=== PATIENT | female | born 1975 | race Caucasian/White ===

== ENCOUNTER 2016-08-10 08:10 | Inpatient (IN) ==
--- NOTE | 2016-08-07 20:27 | Discharge Summary ---
<Tessy Cadena - Last Filed: 08/10/16 08:03> Date of Encounter: 08/10/16 - Discharge Diagnosis (1) Arthritis of knee, right Priority: Primary Status: Acute (2) HTN (hypertension) Priority: Secondary Status: Chronic Qualifiers: Hypertension type: essential hypertension Qualified Code(s): I10 - Essential (primary) hypertension (3) Hypothyroid Priority: Secondary Status: Chronic Qualifiers: Hypothyroidism type: unspecified Qualified Code(s): E03.9 - Hypothyroidism , unspecified (4) DMII (diabetes mellitus, type 2) Priority: Secondary Status: Chronic Qualifiers: Diabetes mellitus complication status: with unspecified complications Diabetes mellitus detention insulin use: unspecified detention insulin use status Qualified Code(s): E11.8 - Type 2 diabetes mellitus with unspecified complications (5) Chronic pain Priority: Secondary Status: Chronic Comments: Will continue morphine 30mg BID - #60 LD 07/06. Qualifiers: Chronic pain type: other chronic pain Qualified Code(s): G89.29 - Other chronic pain - Discharge Medications Home Medications: Aspirin Enteric Coated [Aspirin EC] 325 mg PO DAILY #21 tablet.dr 08/07/16 [Rx] ALPRAZolam [Xanax 0.5 MG Tablet] 0.5 mg PO TID PRN 08/10/16 [History] ARIPiprazole [Abilify] 5 mg PO HS 08/10/16 [History] Atorvastatin Calcium [Lipitor] 20 mg PO HS 08/10/16 [History] Cetirizine HCl [Zyrtec] 10 mg PO DAILY 08/10/16 [History] Cholecalciferol (Vitamin D3) [Vitamin D3] 1,000 unit PO DAILY 08/10/16 [History] Ergocalciferol (VITAMIN D2) [Vitamin D2] 50,000 unit PO QWEEK 08/10/16 [History] FLUoxetine HCl [Prozac] 40 mg PO DAILY 08/10/16 [History] Fenofibrate [Tricor] 54 mg PO DAILY 08/10/16 [History] Gabapentin [Neurontin] 800 mg PO TID 08/10/16 [History] Insulin Glargine [Lantus] 30 unit SQ HS 08/10/16 [History] Levothyroxine [Synthroid] 125 mcg PO 0630 08/10/16 [History] Lidocaine Patch [Lidoderm 5% patch] 1 each TP DAILY #30 adh..patch 08/10/16 [Rx] Linagliptin [Tradjenta] 5 mg PO DAILY 08/10/16 [History] Lisinopril [Zestril] 10 mg PO DAILY 08/10/16 [History] Meloxicam 15 mg PO DAILY #30 tablet 08/10/16 [Rx] Metformin HCl [Glucophage] 1,000 mg PO BID 08/10/16 [History] Mirtazapine [Remeron] 15 mg PO HS 08/10/16 [History] Morphine Sulfate ER (24 HR) [Morphine Sulfate ER Caps] 1 cap PO BID 08/10/16 [ History] [place]-3/Dha/Epa/Fish Oil [Fish Oil 1,000 mg Softgel] 1 each PO DAILY 08/10/16 [ History] Omeprazole [PriLOSEC] 20 mg PO DAILY 08/10/16 [History] Tizanidine HCl 4 mg PO Q8H PRN 08/10/16 [History] Zolpidem [Ambien] 10 mg PO HS 08/10/16 [History] raNITIdine HCl [Ranitidine HCl] 150 mg PO DAILY 08/10/16 [History] Allergies/Adverse Reactions: Allergies meperidine [From Demerol] Allergy (Verified 08/10/16 09:02) Hives trazodone Allergy (Verified 08/10/16 09:02) Hives Primary care physician: Meliton Nicolas - Patient Status Disposition: Home, Self-Care Condition: Good - Discharge Instructions Follow Up With: Armin Banerjee, MANDY [Primary Care Provider] - - Hospital Course Hospital course: Ms. Dc is a 41 year old female - Time Spent with Patient Total time spent providing and/or coordinating discharge services: <Christian Brenner - Last Filed: 08/11/16 08:13> Date of Encounter: 08/11/16 Time of Encounter: 08:13 - Discharge Diagnosis (1) Arthritis of knee, right Priority: Primary Status: Acute (2) HTN (hypertension) Priority: Secondary Status: Chronic Qualifiers: Hypertension type: essential hypertension Qualified Code(s): I10 - Essential (primary) hypertension (3) Hypothyroid Priority: Secondary Status: Chronic Qualifiers: Hypothyroidism type: unspecified Qualified Code(s): E03.9 - Hypothyroidism , unspecified (4) DMII (diabetes mellitus, type 2) Priority: Secondary Status: Chronic Qualifiers: Diabetes mellitus complication status: with unspecified complications Diabetes mellitus detention insulin use: unspecified detention insulin use status Qualified Code(s): E11.8 - Type 2 diabetes mellitus with unspecified complications (5) Chronic pain Priority: Secondary Status: Chronic Qualifiers: Chronic pain type: other chronic pain Qualified Code(s): G89.29 - Other chronic pain Primary care physician: Meliton Nicolas - Patient Status Functional capacity at discharge: uses cane/walker Overall status at discharge: patient is progressing back to baseline - Hospital Course Hospital course: Ms. Dc is a 41 year old female The patient had an uneventful postoperative course. They received antibiotics and physical therapy and were discharged in stable condition. There will follow -up in the office in 2 weeks. Aspirin DVT prophylaxis - Time Spent with Patient Total time spent providing and/or coordinating discharge services:
--- NOTE | 2016-08-10 08:51 | History & Physical Report ---
Date of Encounter: 08/10/16 Time of Encounter: 08:50 24 Hour HP Update - Instructions Instructions: If the History and Physical is less than 30 days old and was completed prior to A.M. admission and or procedure and has NOT been updated on calendar day of procedure please complete this update prior to performing procedure. - Update Patient reports changes in Medical Condition: No Changes in examination, assessment, or condition: No Changes in Medication: No Preop tests/diagnostics Reviewed: Yes Surgery Remains Indicated: Yes Consent for Planned Operative Procedure(s) Verified: Yes - Pre-Operative Checklist Preoperative Checklist Indicated: No Prophylactic Antibiotic Ordered: Yes Is VTE Prophylaxis Indicated?: Yes
[2016-08-10] MEDS ORDERED: CeFAZolin Pre 2,000 MG/100 ML 2,000 MG/100 ML BAG IVPB ONE (09:25)
[2016-08-10] MEDS ORDERED: Lidocaine -MPF 1% 2 ML VIAL ID ONE (09:25)
[2016-08-10] MEDS ORDERED: Ringers Solution, Lactated 1,000 ML IVC SCH (09:30)
[2016-08-10] MEDS ORDERED: Scopolamine Patch 1.5 MG PATCH.TD72 TD ONE (09:48)
--- NOTE | 2016-08-10 09:51 | Anesthesia Evaluation PreOp ---
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: Other (anxiety, depression) Other Medical History: Diabetes Type II (uses insulin), Other (hx colon cancer s /p resection (no hx chemo/radiation), BMI 42) Anesthesia History: Past Anesthesia (cholecystectomy, tubal, C-S, hysterectomy, appendectomy, hemorrhoidectomy, colon resection, partial R knee surgery, bilateral carpal tunnel), Problems (nausea) Medications and Allergies Aspirin Enteric Coated [Aspirin EC] 325 mg PO DAILY #21 tablet.dr 08/07/16 [Rx] ALPRAZolam [Xanax 0.5 MG Tablet] 0.5 mg PO TID PRN 08/10/16 [History] ARIPiprazole [Abilify] 5 mg PO HS 08/10/16 [History] Atorvastatin Calcium [Lipitor] 20 mg PO HS 08/10/16 [History] Cetirizine HCl [Zyrtec] 10 mg PO DAILY 08/10/16 [History] Cholecalciferol (Vitamin D3) [Vitamin D] 1,000 unit PO DAILY 08/10/16 [History] Ergocalciferol (VITAMIN D2) [Vitamin D2] 50,000 unit PO QWEEK 08/10/16 [History] FLUoxetine HCl [Prozac] 40 mg PO DAILY 08/10/16 [History] Fenofibrate [Tricor] 54 mg PO DAILY 08/10/16 [History] Gabapentin [Neurontin] 800 mg PO TID 08/10/16 [History] Insulin Glargine [Lantus] 30 unit SQ HS 08/10/16 [History] Levothyroxine [Synthroid] 125 mcg PO 0630 08/10/16 [History] Lidocaine Patch [Lidoderm 5% patch] 1 each TP DAILY #30 adh..patch 08/10/16 [Rx] Linagliptin [Tradjenta] 5 mg PO DAILY 08/10/16 [History] Lisinopril [Zestril] 10 mg PO DAILY 08/10/16 [History] Meloxicam 15 mg PO DAILY #30 tablet 08/10/16 [Rx] Metformin HCl [Glucophage] 1,000 mg PO BID 08/10/16 [History] Mirtazapine [Remeron] 15 mg PO HS 08/10/16 [History] Morphine Sulfate ER (24 HR) [Morphine Sulfate ER Caps] 1 cap PO BID 08/10/16 [ History] [place]-3/Dha/Epa/Fish Oil [Fish Oil 1,000 mg Softgel] 1 each PO DAILY 08/10/16 [ History] Omeprazole [PriLOSEC] 20 mg PO DAILY 08/10/16 [History] Tizanidine HCl 4 mg PO Q8H PRN 08/10/16 [History] Zolpidem [Ambien] 10 mg PO HS 08/10/16 [History] raNITIdine HCl [Ranitidine HCl] 150 mg PO DAILY 08/10/16 [History] Allergies meperidine [From Demerol] Allergy (Verified 08/10/16 09:02) Hives trazodone Allergy (Verified 08/10/16 09:02) Hives - Meds/Allergy Pre-op Review Medications Reviewed: Yes Allergies Reviewed: Yes Beta Blockers on Current Med List: No Anesthesia Results - Labs Laboratory Tests 08/03/16 08/03/16 08/03/16 13:30 13:30 13:30 WBC Hgb Hct Plt Count PT 10.5 INR 1.0 APTT 30.5 Sodium 137 Potassium 3.9 Chloride 104 Carbon Dioxide 20 BUN 8 Creatinine 0.91 Est GFR ( Amer) > 60 Est GFR (Non-Af Amer) > 60 BUN/Creatinine Ratio 9 Est Mean Plasma Glucose 177 Hemoglobin A1c 7.8 H 08/03/16 13:30 WBC 11.9 H Hgb 13.2 Hct 39.4 Plt Count 301 PT INR APTT Sodium Potassium Chloride Carbon Dioxide BUN Creatinine Est GFR ( Amer) Est GFR (Non-Af Amer) BUN/Creatinine Ratio Est Mean Plasma Glucose Hemoglobin A1c - Imaging Chest x-ray: report reviewed Anesthesia Exam Last Vital Signs Temp 97.9 F 08/10/16 08:52 Pulse 79 08/10/16 08:52 Resp 18 08/10/16 08:52 BP 98/67 08/10/16 08:52 Pulse Ox 97 08/10/16 08:52 Weight: 110 kg NPO (# of Hours): >> 8 hrs - HEENT Pupil (Motor): Pupils equal, EOMI Mallampati: II Teeth: Normal Oral Opening: Greater than 3 - PIE MAKER MACHINE LOC: Oriented PIE MAKER MACHINE Motor: Normal RUE, Normal LUE, Normal RLE, Normal LLE, Normal Face - Cardiac Rhythm: Regular Murmur: None - Pulmonary Breath Sounds: bilateral Clear Respiratory Effort: Symmetrical Anesthesia Assess/Plan ASA Score: 3 Modified Jordan Scale for Level of Consciousness: Cooperative, oriented, and tranquil Anesthetic Plan: General, Regional Monitoring Plan: Standard Monitors Recovery Plan: PACU
[2016-08-10] MEDS ORDERED: *HR* Propofol 200 MG/20 ML VIAL IVP ONE (10:24)
[2016-08-10] MEDS ORDERED: *HR* Midazolam HCl 2 MG/2 ML VIAL ONE (10:24)
[2016-08-10] MEDS ORDERED: Ondansetron 4 MG/2 ML VIAL ONE (10:24)
[2016-08-10] MEDS ORDERED: *HR* FentaNYL (PF) 100 MCG/2 ML VIAL ONE (10:24)
[2016-08-10] MEDS ORDERED: Lidocaine -MPF 2% 2 ML VIAL ONE (10:24)
[2016-08-10] MEDS ORDERED: Dexamethasone 4 MG/ML VIAL ONE ×2 (10:24)
[2016-08-10] MEDS ORDERED: ROPIVACAINE HCL/PF 0.5% 30 ML VIAL ONE (11:10)
[2016-08-10] MEDS ORDERED: Bupivacaine/Clonidine Syringe 1 EACH SYRINGE ONE (11:11)
[2016-08-10] MEDS ORDERED: *HR* Succinylcholine 200 MG/10 ML VIAL IVP ONE (11:30)
[2016-08-10] MEDS ORDERED: *HR* HYDROmorphone 2 MG/ML SYRINGE ONE (12:00)
[2016-08-10] MEDS ORDERED: Ketorolac 30 MG/ML VIAL ONE (12:00)
--- NOTE | 2016-08-10 12:18 | Orthopedic Operative Note ---
Date of procedure: 08/10/16 Pre-op diagnosis: Right knee arthritis Post-op diagnosis: same (Previous partial femoral replacement medial femoral condyle.) Procedure: Procedure: Right Total knee replacement Estimated blood loss: 200 cc Hardware: Metal and polyethylene replacement. Arthrex Femur: 5 Tibia: 4 PS insert: 8 Patella: 34 Exam Under anesthesia: Full flexion and extension no instability well-healed incision no swelling or erythema Procedural Notes: Grade 3 arthritic changes around the femoral implant, grade 3 arthritic changes patellofemoral joint. Operative procedure: The patient was brought to the operating room and placed on the operating room table. After general anesthesia was administered the operative knee was examined. Findings were noted in the exam under anesthesia. The operative extremity was prepped and draped in sterile surgical fashion. The patient received IV antibiotics prior to skin incision. A standard midline incision was made centered over the patella. The incision was made through the skin and subcutaneous tissue. A medial parapatellar tendon approach was performed. Care was taken to preserve tissue along the medial aspect of the patella. And to protect the patella tendon. The deep MCL was released off the medial tibia. The infra patella fat pad was excised. Knee was brought into flexion. Patient noted to have grade 3 arthritic changes around femoral implant and medial compartment. The femoral component was removed with an osteotome and a mallet. The entry hole was made for the intramedullary femoral guide. The guide was seated in 6 degrees of valgus. Anterior cut was made followed by the distal cut. The ACL the PCL the medial and the lateral menisci were excised. The tibia was subluxed forward. The entry hole was made for the intramedullary tibial guide. Guide was seated to resect 2 mm off the more abnormal side. The knee was brought into flexion the distal femur was sized to a 5. The femoral guide was seated, the anterior cut was made followed by the posterior condylar cut, followed by the chamfer cuts. The finishing guide was seated the box cut was made and the lug holes were drilled. The tibia was sized to a 4, the tibial tray was seated and prepared with the large drill followed by the fin cutter. Trial reduction revealed full extension no varus valgus instability with the appropriate 8 PS Cat. The patella was everted and cut was made at the level of the insertion of the quadriceps and patella tendon. The patella was sized 34 the guide was seated and the lug holes are drilled. Trial reduction revealed excellent patella tracking. All trial components were removed all bony surfaces were irrigated. The tibia was cemented first followed by the femur. The 8 PS Cat was seated and the knee was brought into full extension. The patella was cemented and held in place with the patellar holding clamp. After the cement had hardened, the knee sat for 2 minutes with a Betadine saline solution. The knee was then irrigated out with 2 L of pulse irrigation. The extensor mechanism was closed with #2 FiberWire suture and #2 PDS suture. The subcutaneous tissue was then irrigated and closed deep with #1 PDS suture superficially with 0 PDS suture and skin was closed with skin elo. The patient was then placed in a sterile dressing and a postoperative brace extubated and transferred to recovery room in stable condition. Anesthesia: KAYE Surgeon: Christian Brenner Manufacturing Inspector: Tessy Cadena Condition: stable Disposition: PACU
[2016-08-10] MEDS ORDERED: Naloxone 0.4 MG/ML INJ IVP PRN ×2 (12:32→13:42)
[2016-08-10] MEDS ORDERED: *HR* Promethazine 25 MG/ML VIAL IVP PRN (12:32)
[2016-08-10] MEDS ORDERED: Ondansetron 4 MG/2 ML VIAL IVP PRN ×2 (12:32→13:42)
[2016-08-10] MEDS: *HR* HYDROmorphone (PF) 1 MG/ML SYRINGE IVP PRN ×6 (12:55→23:11)
--- NOTE | 2016-08-10 13:21 | Anesthesia Evaluation Post Op ---
Date of Encounter: 08/10/16 Time of Encounter: 13:21 - Vital Signs Vital Signs: Vital Signs/O2 Sat, Most Current Temp Pulse Resp BP Pulse Ox 98.9 F 73 13 119/77 100 08/10/16 12:44 08/10/16 13:04 08/10/16 13:04 08/10/16 12:54 08/10/16 13:04 - Lungs Lungs: Clear Ascult./Percussion - Airway Airway: Non-obstructed - Cardiovascular Regular Rate - Mental Status Mental Status: Alert & Oriented, Answers Appropriately - Pain Pain Scale: 7 - Nausea Vomiting Nausea Vomiting: Not Present - Hydration Hydration: Ice chips
[2016-08-10 13:22] LABS: Hematocrit 35.3 % (35.3-44.9); Hemoglobin 11.9 g/dL (11.5-15.4)
[2016-08-10] MEDS ORDERED: D5% in Water 1,000 ML IVC PRN (13:42)
[2016-08-10] MEDS ORDERED: Dextrose Gel 15 GM PO PRN ×2 (13:42)
[2016-08-10] MEDS ORDERED: *HR* OxyCODONE Immed Rel 5 MG TABLET PO PRN (13:42)
[2016-08-10] MEDS ORDERED: *HR* Dextrose 50 % in Water (Syg) 50 ML SYRINGE IVP PRN (13:42)
[2016-08-10] MEDS ORDERED: ALPRAZolam 0.5 MG TABLET PO PRN (13:42)
[2016-08-10] MEDS ORDERED: Sennosides 8.6 MG TABLET PO PRN (13:42)
[2016-08-10] MEDS ORDERED: Ketorolac 30 MG/ML VIAL IVP PRN (13:42)
[2016-08-10] MEDS ORDERED: MOM Conc 10 ML UD.LIQ PO PRN (13:42)
[2016-08-10] MEDS ORDERED: Temazepam 15 MG CAPSULE PO PRN (13:42)
[2016-08-10] MEDS ORDERED: tiZANidine 4 MG TABLET PO PRN (13:42)
--- NOTE | 2016-08-10 13:46 | Anesthesia Procedures ---
Date of Encounter: 08/10/16 Time of Encounter: 11:00 Procedures: Anesthesia - Nerve Block Procedure Date: 08/10/16 Time: 11:00 Allergies/Adv Reactions: demerol, trazodone Pre-op Diagnosis: R knee pain Surgical Procedure: R total knee Checklist: Correct Patient Identifier, Correct procedure, History checked Correct side: Right Blood Thinner: No Monitor Applied: EKG, BP, Pulse Oximetry Supplemental Oxygen via Nasal Cannula (L/min): 2 Sedation: Versed (mg): 2 Sedation: Fentanyl (mcg): 100 Indication: Post Op Analgesia Pre-op Neuro Deficits: No Block Type: Femoral, Other (IPAC) Catheter placed: No Sterile Technique: Yes Ultrasound used: Yes Anatomy identified: Yes Visual spread of Local: Yes Neuro Stimulation: Yes Nerve Stimulator Range: 0.2 - 0.4 mA Blood on Needle Aspiration: No Smooth Injection of Local: Yes Pain with Injection of Local: No Prep: Chlorhexadine Needle: 22 x 50 mm Stimuplex Local: Ropivacaine (0.5%) Volume (cc): 30 Number of Attempts: 1 Complications: None/effective block
[2016-08-10] MEDS: Insulin LISPRO 300 UNITS/3 ML VIAL SQ SCH ×2 (14:20→16:25)
[2016-08-10] MEDS: Gabapentin 400 MG CAPSULE PO SCH ×2 (14:23→21:49)
[2016-08-10] MEDS: *HR* OxyCODONE/APAP 7.5/325 TABLET PO PRN (14:23)
[2016-08-10] MEDS: Acetaminophen IV 1,000 MG/100 ML INFUS..BTL IVPB SCH ×2 (14:59→19:44)
[2016-08-10] MEDS: ceFAZolin 2,000 MG in D5% in Water 100 ML IVPB SCH ×2 (16:25→23:13)
[2016-08-10] MEDS: *HR* Enoxaparin 30 MG/0.3 ML SYRINGE SQ SCH (17:30)
[2016-08-10] MEDS ORDERED: *HR* Enoxaparin 30 MG/0.3 ML SYRINGE SQ SCH (18:00)
[2016-08-10] MEDS ORDERED: NON-FORMULARY MEDICATION 1 EACH EACH (Insulin Glargine [Lantus] 30 UNIT) SQ SCH (21:00)
[2016-08-10] MEDS ORDERED: Insulin DETEMIR 100 UNIT/ML X5UNITS SQ SCH (21:00)
[2016-08-10] MEDS ORDERED: Insulin LISPRO 300 UNITS/3 ML VIAL SQ SCH (21:00)
[2016-08-10] MEDS ORDERED: MORPHINE SULFATE 30 MG PO SCH (21:00)
[2016-08-10] MEDS ORDERED: ARIPiprazole 5 MG TABLET PO SCH (21:00)
[2016-08-10] MEDS ORDERED: Mirtazapine 15 MG TABLET PO SCH (21:00)
[2016-08-10] MEDS: *HR* Morphine Sulfate SR (12 HR) 30 MG TABLET.ER PO SCH (21:48)
[2016-08-10] MEDS: *HR* Metformin 500 MG TABLET PO SCH (21:49)
[2016-08-10] MEDS: Ringers Solution, Lactated 1,000 ML IVC SCH (23:17)
[2016-08-11] MEDS: Acetaminophen IV 1,000 MG/100 ML INFUS..BTL IVPB SCH ×2 (01:50→12:35)
[2016-08-11] MEDS: *HR* OxyCODONE/APAP 7.5/325 TABLET PO PRN ×2 (03:21→10:53)
[2016-08-11] MEDS: *HR* HYDROmorphone (PF) 1 MG/ML SYRINGE IVP PRN (05:33)
[2016-08-11 05:39] LABS: Hematocrit 29.5 % (35.3-44.9); Hemoglobin 10.2 g/dL (11.5-15.4)
[2016-08-11] MEDS: *HR* Enoxaparin 30 MG/0.3 ML SYRINGE SQ SCH (05:49)
[2016-08-11 05:58] LABS: BUN/Creatinine Ratio 9 (6-26); Blood Urea Nitrogen 10 mg/dL (7-20); Calcium 8.9 mg/dL (8.6-10.8); Carbon Dioxide 25 mEq/L (19-29); Chloride 105 mEq/L (98-109); Glucose 203 mg/dL (70-99); Osmolality,Calculated 291 (280-300); Potassium 3.8 mEq/L (3.5-4.5); Sodium 138 mEq/L (136-145); eGFR For African Americans > 60 (> 60); eGFR For Non-African Americans 57 (> 60)
[2016-08-11 06:43] VITALS: BP 104/68
[2016-08-11] MEDS: Insulin LISPRO 300 UNITS/3 ML VIAL SQ SCH ×2 (08:09→12:35)
[2016-08-11] MEDS: *HR* Morphine Sulfate SR (12 HR) 30 MG TABLET.ER PO SCH (08:10)
[2016-08-11] MEDS: *HR* Metformin 500 MG TABLET PO SCH (08:11)
[2016-08-11] MEDS: Gabapentin 400 MG CAPSULE PO SCH (08:11)
[2016-08-11] MEDS: Ringers Solution, Lactated 1,000 ML IVC SCH (08:12)
--- NOTE | 2016-08-11 08:14 | Orthopedics Progress Note ---
Date of Encounter: 08/11/16 Time of Encounter: 08:14 - Assessment and Plan (1) Arthritis of knee, right Current Visit: Yes Status: Acute (2) HTN (hypertension) Current Visit: Yes Status: Chronic Qualifiers: Hypertension type: essential hypertension Qualified Code(s): I10 - Essential (primary) hypertension (3) Hypothyroid Current Visit: Yes Status: Chronic Qualifiers: Hypothyroidism type: unspecified Qualified Code(s): E03.9 - Hypothyroidism , unspecified (4) DMII (diabetes mellitus, type 2) Current Visit: Yes Status: Chronic Qualifiers: Diabetes mellitus complication status: with unspecified complications 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 Afebrile vital signs stable. Operative extremity: Neurovascularly intact Dressing clean dry and intact Calves nontender Assessment and plan: Continue with postoperative care Hemoglobin 10.2 discharged today Objective Vital signs: Vital Signs Temp Pulse Resp BP Pulse Ox 08/11/16 06:42 98.2 F 78 16 104/68 94 08/11/16 05:32 98.2 F 73 15 100/67 94 08/11/16 00:20 98.2 F 74 16 109/75 95 08/10/16 19:42 98.5 F 78 16 104/72 94 08/10/16 16:33 98.2 F 78 14 109/73 93 08/10/16 16:19 86 18 132/78 94 08/10/16 15:58 98.0 F 86 18 132/78 94 08/10/16 14:52 98.3 F 81 16 117/76 93 08/10/16 14:20 98.1 F 87 14 117/80 97 08/10/16 13:44 98.1 F 78 14 102/70 96 08/10/16 13:24 98.5 F 76 14 115/71 98 08/10/16 13:14 98.5 F 83 13 106/76 99 08/10/16 13:04 73 13 113/84 100 08/10/16 12:54 84 14 119/77 94 08/10/16 12:44 98.9 F 94 14 121/76 95 08/10/16 11:24 79 116/73 97 08/10/16 11:10 81 113/67 98 08/10/16 08:52 97.9 F 79 18 98/67 97 Intake and Output 08/10/16 08/11/16 08/11/16 23:59 07:59 15:59 Intake Total 200 / 200 100 / 100 Balance 200 / 200 100 / 100 Intake: IV Fluids 200 / 200 100 / 100 Lactated Ringers 1,000 ML 0 / 0 @ 75 mls/hr IVC .[id number] JUDITH Rx#:[id number] Ofirmev 1,000 mg/100 ml 1 100 / 100 100 / 100 ,000 mg In 100 ml @ 400 mls/hr IVPB Q6H JUDITH Rx#: [id number] Ancef 2,000 MG In 100 / 100 Dextrose 5% 100 ML @ 200 mls/hr IVPB Q8HR JUDITH Rx#: [id number] Other: Blood Glucose* 321 201 - Labs CBC & BMP: 08/11/16 05:23 08/11/16 05:23 Labs: Abnormal lab results Hgb 10.2 g/dL (11.5-15.4) L D 08/11/16 05:23 Hct 29.5 % (35.3-44.9) L 08/11/16 05:23 Est GFR (Non-Af Amer) 57 (> 60) L 08/11/16 05:23 Glucose 203 mg/dL (70-99) H 08/11/16 05:23 POC Glucose 321 (58-89) H 08/10/16 19:49 - VTE Documentation of Mechanical Device: Venous foot pump, device Consult Discharge Plan - Plan Referrals: Armin Banerjee, FLOOR COVERING INSTALLER [Primary Care Provider] -
[2016-08-11] MEDS ORDERED: Fenofibrate 54 MG TABLET PO SCH (09:00)
[2016-08-11] MEDS ORDERED: (Linagliptin [Tradjenta] 5 MG) PO SCH (09:00)
[2016-08-11] MEDS ORDERED: Famotidine 20 MG TABLET PO SCH (09:00)
[2016-08-11] MEDS ORDERED: (Omega-3/Dha/Epa/Fish Oil [Fish Oil 1,000 Mg Softgel] PO SCH (09:00)
[2016-08-11] MEDS ORDERED: Loratadine 10 MG TABLET PO SCH (09:00)
[2016-08-11] MEDS ORDERED: Cholecalciferol (D-3) 1,000 UNIT TABLET PO SCH (09:00)
[2016-08-11] MEDS ORDERED: FLUoxetine 20 MG CAPSULE PO SCH (09:00)
== END 2016-08-11 13:02 | disposition home or self-care (01) | DRG 470 ==
LOC: SAMDAY 08:10 → 3NENU 14:05
PROVIDERS: ADMIT Orthopaedic Surgery; ATTEND Orthopaedic Surgery

== ENCOUNTER 2018-11-26 12:06 | Inpatient (IN) ==
[~2018-11-26 12:06] MED LIST: Total Joint Mixture (50 ml) IR ONE
[2018-11-26] MEDS ORDERED: CeFAZolin Syr 2,000MG/20 ML 2,000 MG/20 ML SYRINGE IVPB ONE (12:40)
[2018-11-26] MEDS ORDERED: Albuterol 2.5 MG/3 ML NEBULIZER IH ONE (12:40)
[2018-11-26] MEDS ORDERED: Ringers Solution, Lactated 1,000 ML IVC SCH ×2 (12:45→17:47)
--- NOTE | 2018-11-26 13:12 | Anesthesia Evaluation PreOp ---
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: Other (Anxiety/Depression) Other Medical History: Diabetes Type II, Thyroid, GERD, Other (Hx Colon Ca s/p surgical resection) Anesthesia History: No Prior Anesthetic Complications, Past Anesthesia (Olya, BTL, , Hyster, Appy, Colon Ca surgery, TKR, B-CTR, R-knee Manipulation/AUBREY,) Alcohol Use: none Drug use: none Medications and Allergies ALPRAZolam [Xanax 0.5 MG Tablet] 0.5 mg PO BID PRN 08/10/16 [History] ARIPiprazole [Abilify] 5 mg PO HS 08/10/16 [History] Atorvastatin Calcium [Lipitor] 20 mg PO HS 08/10/16 [History] Cetirizine HCl [Zyrtec] 10 mg PO DAILY 08/10/16 [History] Cholecalciferol (Vitamin D3) [Vitamin D3] 1,000 unit PO DAILY 08/10/16 [History] FLUoxetine HCl [Prozac] 40 mg PO DAILY 08/10/16 [History] Fenofibrate [Tricor] 54 mg PO DAILY 08/10/16 [History] Gabapentin [Neurontin] 800 mg PO TID 08/10/16 [History] Insulin Glargine [Lantus] 40 unit SQ HS 08/10/16 [History] Levothyroxine [Synthroid] 125 mcg PO 0630 08/10/16 [History] Linagliptin [Tradjenta] 5 mg PO DAILY 08/10/16 [History] Lisinopril [Zestril] 10 mg PO DAILY 08/10/16 [History] Metformin HCl [Glucophage] 1,000 mg PO BID 08/10/16 [History] Mirtazapine [Remeron] 15 mg PO HS 08/10/16 [History] Omeprazole [PriLOSEC] 20 mg PO DAILY 08/10/16 [History] Tizanidine HCl 4 mg PO Q8H PRN 08/10/16 [History] Zolpidem [Ambien] 10 mg PO HS 08/10/16 [History] raNITIdine HCl [Ranitidine HCl] 150 mg PO DAILY 08/10/16 [History] Clindamycin [Cleocin] 150 mg PO Q6HR #7 capsule 06/15/17 [Rx] HYDROcodone/Acet 5/325 mg [[place] 5-325 mg] 1 tab PO Q6H PRN 5 Days #14 tab 06/15/17 [Rx] Ibuprofen [Motrin] 600 mg PO Q8HR #20 tab 06/15/17 [Rx] Sucralfate [Carafate] 1 gm PO QID 06/15/17 [History] Allergy/AdvReac Type Severity Reaction Status Date / Time meperidine [From Demerol] Allergy Hives Verified 08/10/16 09:02 trazodone Allergy Hives Verified 08/10/16 09:02 - Meds/Allergy Pre-op Review Medications Reviewed: Yes Allergies Reviewed: Yes Beta Blockers on Current Med List: No Anesthesia Results - Labs Laboratory Tests 11/22/18 11/22/18 11/22/18 09:55 09:55 09:55 WBC 9.2 Hgb 13.5 Hct 41.6 Plt Count 293 PT 9.8 INR 0.9 APTT 30.9 Sodium 136 Potassium 4.1 Chloride 102 Carbon Dioxide 24 BUN 10 Creatinine 0.59 L Est GFR (Non-Af Amer) > 60 Est Mean Plasma Glucose Hemoglobin A1c 11/22/18 09:55 WBC Hgb Hct Plt Count PT INR APTT Sodium Potassium Chloride Carbon Dioxide BUN Creatinine Est GFR (Non-Af Amer) Est Mean Plasma Glucose 203 Hemoglobin A1c 8.7 H - Imaging EKG: report reviewed (89bpm - SINUS RHYTHM MARKED LEFT AXIS DEVIATION LOW QRS VOLTAGE IN PRECORDIAL LEADS INCOMPLETE RIGHT BUNDLE BRANCH BLOCK MINIMAL VOLTAGE CRITERIA FOR LVH, CONSIDER NORMAL VARIANT POSSIBLE ANTERIOR MYOCARDIAL INFARCTION, OF INDETERMINATE AGE Electronically Signed On 08-04-2016 17:15:55 EDT by Chriss Laboy MD) Anesthesia Exam O2 Sat Height 1.65 m Height 1.65 m Weight 107.501 kg Weight 107.501 kg O2 Sat by Pulse Oximetry 98 Vital Signs Temp Pulse Resp BP Pulse Ox 98.1 F 78 18 107/78 98 11/26/18 12:31 11/26/18 12:31 11/26/18 12:31 11/26/18 12:31 11/26/18 12:31 Height: 5'5" Weight: 237# BMI = 40 NPO (# of Hours): Mnoc - HEENT Pupil (Motor): Pupils equal, EOMI Mallampati: III Teeth: Missing (few missing teeth), Poor dentition Oral Opening: Greater than 3 - COMMERCIAL COLLECTOR LOC: Oriented COMMERCIAL COLLECTOR Motor: Normal RUE, Normal LUE, Normal RLE, Normal LLE, Normal Face COMMERCIAL COLLECTOR Sensory: Normal: RUE, LUE, RLE, LLE, Face - Cardiac Rhythm: Regular - Pulmonary Breath Sounds: bilateral Clear Respiratory Effort: Symmetrical Anesthesia Assess/Plan ASA Score: 3 (MO/BMI = 39, HTN, Chol, DM, Hypothyroidism) Level of consciousness: Cooperative, Tranquil Anesthetic Plan: General, Regional Nerve Block, Spinal Regional Nerve Block Plan: Adductor canal Monitoring Plan: Standard Monitors Recovery Plan: PACU Anes Supervising Prov Stmt: Pt seen/evaluated, R&B Discussed, questions answered and consent obtained. Adonis Storey MD
[2018-11-26] MEDS ORDERED: Famotidine 20 MG/2 ML VIAL IVP ONE (13:20)
[2018-11-26] MEDS ORDERED: Pregabalin 75 MG CAPSULE PO ONE (13:21)
[2018-11-26] MEDS ORDERED: *HR* OxyCODONE ER (12 HR) 10 MG TABLET PO ONE (13:21)
[2018-11-26] MEDS ORDERED: Acetaminophen IV 1,000 MG/100 ML INFUS..BTL IVPB ONE (13:21)
[2018-11-26] MEDS ORDERED: *HR* OxyCODONE Immed Rel 5 MG TABLET PO PRN (13:23)
[2018-11-26] MEDS ORDERED: *HR* Promethazine 25 MG/ML VIAL IVP PRN ×2 (13:24→17:47)
[2018-11-26] MEDS ORDERED: *HR* HYDROmorphone 2 MG TABLET PO PRN (13:24)
[2018-11-26] MEDS ORDERED: *HR* Labetalol 20 MG/4 ML SYRINGE IVP PRN (13:24)
[2018-11-26] MEDS ORDERED: Ondansetron 4 MG/2 ML VIAL ONE (13:27)
[2018-11-26] MEDS ORDERED: Lidocaine -MPF 2% 2 ML VIAL ONE (13:27)
[2018-11-26] MEDS ORDERED: *HR* Midazolam HCl 2 MG/2 ML VIAL ONE ×2 (13:28→14:42)
[2018-11-26] MEDS ORDERED: *HR* Propofol 200 MG/20 ML VIAL IVP ONE (13:28)
[2018-11-26] MEDS ORDERED: *HR* FentaNYL (PF) 100 MCG/2 ML VIAL ONE (13:28)
[2018-11-26] MEDS ORDERED: Dexamethasone 4 MG/ML VIAL ONE (13:30)
[2018-11-26] MEDS ORDERED: Ropivacaine/PF 0.5% 30 ML VIAL ONE (14:00)
[2018-11-26] MEDS ORDERED: Propofol 500 MG/50 ML INFUS..BTL ONE ×2 (14:00→15:38)
--- NOTE | 2018-11-26 14:01 | History & Physical Report ---
Date of Encounter: 11/26/18 Time of Encounter: 14:01 24 Hour HP Update - Instructions Instructions: If the History and Physical is less than 30 days old and was completed prior to A.M. admission and or procedure and has NOT been updated on calendar day of procedure please complete this update prior to performing procedure. - Update Patient reports changes in Medical Condition: No Changes in examination, assessment, or condition: No Changes in Medication: No Preop tests/diagnostics Reviewed: Yes Surgery Remains Indicated: Yes Consent for Planned Operative Procedure(s) Verified: Yes - Pre-Operative Checklist Preoperative Checklist Indicated: No Prophylactic Antibiotic Ordered: Yes Is VTE Prophylaxis Indicated?: Yes
[2018-11-26] MEDS ORDERED: Lidocaine -MPF 1% 5 ML AMPUL ONE (14:24)
--- NOTE | 2018-11-26 14:36 | Anesthesia Procedures ---
Date of Encounter: 11/26/18 Time of Encounter: 14:30 Procedures: Anesthesia - Epidural/Spinal Patient ID/Chart reviewed: Yes Patient examined: Yes Supplemental Oxygen: Nasal Cannula Supplemental Oxygen Rate (L/min): 2 Sedation: Versed (mg): 2 Sedation: Fentanyl (mcg): 100 Site Prep: Sterile prep and drape, 0.5% Chlorhexidine/Alcohol Patient position: upright Local Anesthetic: Lidocaine 1% Amount of Local Anesthetic used: 2 Interspace Used: L3-L4 Blood: No CSF: Yes Paresthesia: No Spinal Needle Gauge: 25 Spinal Dose: 3cc 0.5% pf bupivicaine Procedure: [facility] Vitals + FHT's: Vital Signs/O2 Sat/Glucose, Most Recent Temp Pulse Resp BP Pulse Ox 98.1 F 78 18 107/78 98 11/26/18 12:11/26/18 12:11/26/18 12:11/26/18 12:11/26/18 12:31 Blood Glucose* 109 - Nerve Block Procedure Date: 11/26/18 Time: 14:33 Surgical Procedure: Right TKR Checklist: Correct Patient Identifier, Correct procedure, History checked Correct side: Right Blood Thinner: No (off 5 days) Monitor Applied: EKG, BP, Pulse Oximetry Supplemental Oxygen via Nasal Cannula (L/min): 2 Sedation: Versed (mg): 2 Sedation: Fentanyl (mcg): 100 Indication: Post Op Analgesia (per [place]) Pre-op Neuro Deficits: No Block Type: Other (adductor) Catheter placed: No Sterile Technique: Yes Ultrasound used: Yes Anatomy identified: Yes Visual spread of Local: Yes Neuro Stimulation: No Blood on Needle Aspiration: No Smooth Injection of Local: Yes Pain with Injection of Local: No Prep: Chlorhexadine Needle: 22 x 50 mm Stimuplex Local: Ropivacaine (0.5%) Volume (cc): 10 Number of Attempts: 1 Complications: None/effective block Vitals: Vital Signs/O2 Sat/Glucose, Most Recent Temp Pulse Resp BP Pulse Ox 98.1 F 78 18 107/78 98 11/26/18 12:31 11/26/18 12:31 11/26/18 12:11/26/18 12:11/26/18 12:31 Blood Glucose* 109 Comments: [facility]
--- NOTE | 2018-11-26 15:17 | Discharge Summary ---
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 Priority: Secondary Status: Chronic (6) DMII (diabetes mellitus, type 2) Priority: Secondary Status: Chronic Qualifiers: 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 Dc is a 43 year old female s/p Right revision robotic-assisted Total knee replacement [Aseptic loosening right total knee] 11/26/18 Patient seen at bedside. A&Ox3 Dressing and incision c/d/i No calf tenderness, erythema, or warmth. Neurovascularly intact b/l LE. Labwork, vitals, and medications reviewed. Pain control: Adequate Participating in therapy. All questions and concerns addressed. Educated on use of incentive spirometer, ambulation, and hydration. Patient educated on post-operative restrictions and care. The patient's postoperative course was uneventful. Progressed from intravenous analgesic needs to oral analgesic needs only. Remained neurovascularly intact and mobilized satisfactorily. All radiographic studies were satisfactory. Patient course and disposition discussed with Dr. Brenner. Patient is discharged to home with plan for rehabilitation and outpatient orthopedic follow up has been arranged. - Time Spent with Patient Total time spent providing and/or coordinating discharge services: - Discharge Medications Prescriptions: New Docusate Sodium [Colace] 100 mg PO BID 5 Days #10 capsule OxyCODONE Immed Rel [Roxicodone 5 MG] 5 mg PO Q6HR PRN 5 Days #20 tablet PRN Reason: Severe Pain Continued Lisinopril [Zestril] 10 mg PO DAILY Omeprazole [PriLOSEC] 20 mg PO BID Levothyroxine [Synthroid] 125 mcg PO 0630 ARIPiprazole [Abilify] 5 mg PO HS Metformin HCl [Glucophage] 1,000 mg PO BID Insulin Glargine [Lantus] 80 unit SQ HS Zolpidem [Ambien] 10 mg PO HS PRN PRN Reason: Sleep Atorvastatin Calcium [Lipitor] 20 mg PO HS Linagliptin [Tradjenta] 5 mg PO DAILY Tizanidine HCl 4 mg PO Q8H PRN PRN Reason: Muscle Spasm FLUoxetine HCl [Prozac] 40 mg PO DAILY raNITIdine HCl [Ranitidine HCl] 150 mg PO DAILY Sucralfate [Carafate] 1 gm PO QID Empagliflozin [Jardiance] 10 mg PO QAM Rivaroxaban [Xarelto] 20 mg PO DAILY Home Medications: ARIPiprazole [Abilify] 5 mg PO HS 08/10/16 [History] Atorvastatin Calcium [Lipitor] 20 mg PO HS 08/10/16 [History] FLUoxetine HCl [Prozac] 40 mg PO DAILY 08/10/16 [History] Insulin Glargine [Lantus] 80 unit SQ HS 08/10/16 [History] Levothyroxine [Synthroid] 125 mcg PO 0630 08/10/16 [History] Linagliptin [Tradjenta] 5 mg PO DAILY 08/10/16 [History] Lisinopril [Zestril] 10 mg PO DAILY 08/10/16 [History] Metformin HCl [Glucophage] 1,000 mg PO BID 08/10/16 [History] Omeprazole [PriLOSEC] 20 mg PO BID 08/10/16 [History] Tizanidine HCl 4 mg PO Q8H PRN 08/10/16 [History] Zolpidem [Ambien] 10 mg PO HS PRN 08/10/16 [History] raNITIdine HCl [Ranitidine HCl] 150 mg PO DAILY 08/10/16 [History] Sucralfate [Carafate] 1 gm PO QID 06/15/17 [History] Docusate Sodium [Colace] 100 mg PO BID 5 Days #10 capsule 11/26/18 [Rx] Empagliflozin [Jardiance] 10 mg PO QAM 11/26/18 [History] OxyCODONE Immed Rel [Roxicodone 5 MG] 5 mg PO Q6HR PRN 5 Days #20 tablet 11/26/18 [Rx] Rivaroxaban [Xarelto] 20 mg PO DAILY 11/26/18 [History] Allergies/Adverse Reactions: Allergy/AdvReac Type Severity Reaction Status Date / Time meperidine [From Demerol] Allergy Hives Verified 08/10/16 09:02 trazodone Allergy Hives Verified 08/10/16 09:02 Date of admission: 11/26/18 Primary care physician: Meliton Nicolas Discharging clinician: Christian Brenner Anticipated date of discharge: 11/27/18 - VTE Documentation of Mechanical Device: Venous foot pump, device Labs on day of discharge: Labs from last 24 hours 11/26/18 12:29 POC Glucose 109 H - Patient Status Disposition: Home, Self-Care Condition: Good Functional capacity at discharge: uses cane/walker Overall status at discharge: patient is progressing back to baseline - Discharge Instructions Follow Up With: Armin Banerjee, MANDY [Primary Care Provider] - - Diet and Activity Activity: as per physical therapy Diet: advance to your usual diet
[2018-11-26] MEDS ORDERED: Ethanol\\Acetic Acid\\Na Ace\\Ben 1,000 ML IRRIG.SOLN IR ONE (15:24)
--- NOTE | 2018-11-26 16:23 | Orthopedic Operative Note ---
Date of procedure: 11/26/18 Pre-op diagnosis: Aseptic loosening right total knee Post-op diagnosis: same Procedure: Procedure: Right revision robotic-assisted Total knee replacement Estimated blood loss: 300 cc Hardware: Metal and polyethylene replacement. Jerry Femur: 3 TS, 15 x 100 stem Tibia: 4, 14 x 100 stem TS insert: 13 Exam Under anesthesia: 9 degrees flexion contracture 5 degree varus as calculated by the robot full flexion and no instability Procedural Notes: Aseptic loosening of tibial and femoral components. Operative procedure: The patient was brought to the operating room and placed on the operating room table. After anesthesia was administered the operative knee was examined. Findings were noted in the exam under anesthesia. The operative extremity was prepped and draped in sterile surgical fashion. The patient received IV antibiotics prior to skin incision. A standard midline incision was made centered over the patella. The incision was made through the old incision, through the skin and subcutaneous tissue. A medial parapatellar tendon approach was performed. Care was taken to preserve tissue along the medial aspect of the patella. Cultures were obtained at this point fluid was serosanguineous. And to protect the patella tendon. The deep MCL was released off the medial tibia. The infra patella fat pad was excised. The patella was everted patella component had no abnormalities. Knee was brought into flexion. Steinmann pins were placed in the tibia and the femur for the tibial and femoral arrays respectively. Checkpoints were also placed in the tibia and the femur for calculation purposes. The knee including the femur and the tibial registered. The femoral and tibial components were removed with an oscillating saw and osteotome by disrupting the interface between the tibial and femoral host bone, both components were loose, both were removed without significant bone loss. Femoral cuts were made first with robotic assistance, these included the anterior cut posterior cuts chamfer cuts. Tibial cut was then performed with robotic assistance as well. Bone fragments were removed. The size 3 femoral guide was seated box cut was made lug holes are drilled. The size 4 tibial tray was seated and prepared with the fin cutter. Trial reduction with the 13 TS Cat revealed extension of 0 degree and 1 degree varus full flexion. No varus valgus instability. Trial reduction revealed excellent patella tracking. All trial components were removed all bony surfaces were irrigated. The Tibia was seated followed by the femur, The selected Cat size was seated and secured. Patient had similar findings for motion and stability. The knee was closed by the PA. The knee was then irrigated out with 2 L of pulse irrigation. The extensor mechanism was closed with #2 FiberWire suture and #2 PDS suture. The subcutaneous tissue was then irrigated and closed deep with #1 PDS suture superficially with 0 PDS suture and skin was closed with elo and zip tie The patient was then placed in a sterile dressing and a postoperative brace and transferred to recovery room in stable condition. Anesthesia: spinal Surgeon: Christian Brenner Was there an digital assistant present: No Estimated blood loss (cc): 300 Condition: stable Disposition: PACU
[2018-11-26] MEDS: *HR* HYDROmorphone (PF) 1 MG/ML SYRINGE IVP PRN ×2 (17:08→17:21)
[2018-11-26 17:35] LABS: Hematocrit 36.6 % (35.3-44.9); Hemoglobin 12.2 g/dL (11.5-15.4)
[2018-11-26] MEDS ORDERED: Naloxone 0.4 MG/ML INJ IVP PRN (17:47)
[2018-11-26] MEDS ORDERED: Temazepam 15 MG CAPSULE PO PRN (17:47)
[2018-11-26] MEDS ORDERED: Sennosides 8.6 MG TABLET PO PRN (17:47)
[2018-11-26] MEDS ORDERED: HYDROcodone BIT/Homatropine 5 MG TABLET PO PRN (17:47)
[2018-11-26] MEDS ORDERED: tiZANidine 4 MG TABLET PO PRN (17:47)
[2018-11-26] MEDS ORDERED: Ondansetron 4 MG/2 ML VIAL IVP PRN (17:47)
[2018-11-26] MEDS ORDERED: *HR* Dextrose 50 % in Water (Syg) 50 ML SYRINGE IVP PRN (17:47)
[2018-11-26] MEDS ORDERED: MOM Conc 10 ML UD.LIQ PO PRN (17:47)
[2018-11-26] MEDS ORDERED: Insulin LISPRO 300 UNITS/3 ML VIAL SQ SCH ×2 (17:47→21:00)
[2018-11-26] MEDS ORDERED: D5% in Water 1,000 ML IVC PRN (17:47)
[2018-11-26] MEDS ORDERED: Dextrose Gel 15 GM/37.5 ML TUBE PO PRN ×2 (17:47)
[2018-11-26] MEDS ORDERED: *HR* Enoxaparin 30 MG/0.3 ML SYRINGE SQ SCH (18:00)
[2018-11-26] MEDS: *HR* OxyCODONE Immed Rel 5 MG TABLET PO PRN ×2 (19:14→23:13)
[2018-11-26] MEDS ORDERED: Insulin DETEMIR 100 UNIT/ML X5UNITS SQ SCH (21:00)
[2018-11-26] MEDS ORDERED: ARIPiprazole 5 MG TABLET PO SCH (21:00)
[2018-11-26] MEDS: Sucralfate 1 GM TABLET PO SCH ×2 (21:10→21:11)
[2018-11-26] MEDS: *HR* Metformin 500 MG TABLET PO SCH (21:11)
[2018-11-26] MEDS: Ascorbic Acid 500 MG TABLET PO SCH (21:11)
[2018-11-26] MEDS: Gabapentin 300 MG CAPSULE PO SCH (21:12)
--- NOTE | 2018-11-26 23:33 | Anesthesia Evaluation Post Op ---
Date of Encounter: 11/26/18 Time of Encounter: 17:45 - Discharge PostOp Status: Transfer Patient to floor (Patient's vital signs have been reviewed. Patient is stable postoperatively and has adequately recovered from anesthesia. Patient is determined to have stable airway patency and respiratory function including respiratory rate and oxygen saturation. Patient has a stable heart rate, blood pressure and adequate hydration. Patients mental status is acceptable. Patients temperature is appropriate. Pain and nausea are adequately controlled)
[2018-11-27] MEDS: *HR* OxyCODONE Immed Rel 5 MG TABLET PO PRN ×4 (03:54→17:11)
[2018-11-27 05:08] LABS: Basophils % 0.1 %; Hematocrit 35.1 % (35.3-44.9); Hemoglobin 11.5 g/dL (11.5-15.4); Immature Granulocytes % 0.6 % (0-4); Lymphocytes # 1.5 K/mcL (0.6-4.6); Lymphocytes % 9.9 %; Mean Corpuscular HGB Conc 32.8 g/dL (31.6-35.5); Mean Corpuscular Hemoglobin 28.6 pg (28.0-33.3); Mean Corpuscular Volume 87.3 fL (83.0-100.0); Mean Platelet Volume 10.4 fL (9.4-12.4); Monocytes # 0.4 K/mcL (0.0-1.3); Monocytes % 2.9 %; Platelet Count 251 K/mcL (140-400); Red Blood Count 4.02 M/mcL (3.82-4.97); Red Cell Distribution Width 12.8 % (11.5-14.5); Segmented Neutrophils % 86.5 %
[2018-11-27 05:34] LABS: BUN/Creatinine Ratio 17 (6-26); Blood Urea Nitrogen 20 mg/dL (6-20); Calcium 8.9 mg/dL (8.6-10.3); Carbon Dioxide 19 mEq/L (23-29); Chloride 103 mEq/L (98-107); Glucose 359 mg/dL (70-105); Osmolality,Calculated 297 (280-300); Potassium 4.5 mEq/L (3.5-5.1); Sodium 135 mEq/L (136-145); eGFR For African Americans > 60 (> 60); eGFR For Non-African Americans 50 (> 60)
--- NOTE | 2018-11-27 06:45 | Orthopedics Progress Note ---
Date of Encounter: 11/27/18 Time of Encounter: 06:44 Subjective Interval history: Patient was seen this morning doing well without complaints. Afebrile vital signs stable. Operative extremity: Neurovascularly intact Dressing clean dry and intact Calves nontender Assessment and plan: Continue with postoperative care Plan for discharge today Objective Vital signs: Vital Signs Temp Pulse Resp BP Pulse Ox 11/27/18 03:16 97.9 F 81 17 112/70 96 11/26/18 23:49 97.8 F 95 17 129/76 97 11/26/18 21:00 98.6 F 88 16 103/75 95 11/26/18 20:00 97.6 F 85 16 115/68 96 11/26/18 17:40 98.8 F 70 12 117/79 94 11/26/18 17:30 98.8 F 74 12 110/76 94 11/26/18 17:20 67 12 102/73 96 11/26/18 17:10 76 12 119/76 96 11/26/18 17:00 98.1 F 82 16 118/74 96 11/26/18 14:58 76 16 113/63 97 11/26/18 14:45 77 17 115/67 97 11/26/18 14:31 78 14 130/91 96 11/26/18 14:23 87 16 128/93 97 11/26/18 14:19 84 16 141/103 98 11/26/18 12:31 98.1 F 78 18 107/78 98 Intake and Output 11/26/18 11/26/18 11/27/18 15:59 23:59 07:59 Intake Total 100 / 100 Output Total 300 / 300 125 / 125 Balance -300 / -300 -25 / -25 Intake: IV Fluids 100 / 100 Ancef 2,000 MG In 0.9 % Sodium 100 / 100 Chloride 100 ML @ 200 mls/hr IVPB Q8H [facility] Rx#:[id number] Output: Urine 125 / 125 Estimated Blood Loss 300 / 300 Other: # Voids 1 1 Weight 107.501 kg 116.7 kg Blood Glucose* 109 382 Patient Weight 11/27/18 23:59 Weight 116.7 kg - Labs CBC & BMP: 11/27/18 04:32 11/27/18 04:32 Labs: Abnormal lab results WBC 15.0 K/mcL (4.3-11.1) H D 11/27/18 04:32 Hct 35.1 % (35.3-44.9) L 11/27/18 04:32 Neutrophils # 13.0 K/mcL (1.6-8.9) H 11/27/18 04:32 Sodium 135 mEq/L (136-145) L 11/27/18 04:32 Carbon Dioxide 19 mEq/L (23-29) L 11/27/18 04:32 Est GFR (Non-Af Amer) 50 (> 60) L 11/27/18 04:32 Glucose 359 mg/dL (70-105) H 11/27/18 04:32 POC Glucose 382 mg/dL (70-99) H 11/26/18 23:53 Consult Discharge Plan - Plan Referrals: Armin Banerjee CNP [Primary Care Provider] -
[2018-11-27] MEDS: Insulin LISPRO 300 UNITS/3 ML VIAL SQ SCH ×3 (07:28→17:12)
[2018-11-27] MEDS: Sucralfate 1 GM TABLET PO SCH ×3 (08:03→17:11)
[2018-11-27] MEDS: Gabapentin 300 MG CAPSULE PO SCH ×2 (08:04→14:48)
[2018-11-27] MEDS: Ascorbic Acid 500 MG TABLET PO SCH ×2 (08:05→17:11)
[2018-11-27] MEDS: *HR* Metformin 500 MG TABLET PO SCH (08:05)
[2018-11-27] MEDS ORDERED: FLUoxetine 20 MG CAPSULE PO SCH (09:00)
[2018-11-27] MEDS ORDERED: (Linagliptin [Tradjenta] 5 MG) PO SCH (09:00)
[2018-11-27] MEDS ORDERED: Famotidine 20 MG TABLET PO SCH (09:00)
[2018-11-27] MEDS ORDERED: Multivit/Ca/Min/Fe/FA 1 TAB TABLET PO SCH (09:00)
[2018-11-27] MEDS ORDERED: (Empagliflozin [Jardiance] 10 MG) PO SCH (09:00)
[2018-11-27] MEDS ORDERED: Acetaminophen IV 1,000 MG/100 ML INFUS..BTL IVPB ONE (13:21)
[2018-11-27] MEDS ORDERED: *HR* Rivaroxaban 10 MG TABLET PO SCH (17:00)
[2018-11-27 18:52] VITALS: BP 108/70
[2018-11-27 19:16] LABS: BUN/Creatinine Ratio 26 (6-26); Blood Urea Nitrogen 27 mg/dL (6-20); Carbon Dioxide 21 mEq/L (23-29); Chloride 107 mEq/L (98-107); Sodium 137 mEq/L (136-145); eGFR For African Americans > 60 (> 60)
[2018-11-27 19:17] LABS: Calcium 8.7 mg/dL (8.6-10.3); Glucose 195 mg/dL (70-105); Osmolality,Calculated 294 (280-300); eGFR For Non-African Americans 59 (> 60)
[2018-11-27] MEDS ORDERED: Insulin LISPRO 300 UNITS/3 ML VIAL SQ SCH (21:00)
== END 2018-11-27 20:45 | disposition home or self-care (01) | DRG 468 ==
LOC: SAMDAY 12:06 → 3NENU 18:35
PROVIDERS: ADMIT Orthopaedic Surgery; ATTEND Orthopaedic Surgery